=== PATIENT | female | born 1975 | race American Indian/Alaskan Native ===

== ENCOUNTER 2017-12-31 15:43 | Emergency (ER) | payer MEDICAID ==
[~2017-12-31] VITALS: Ht 162.6 cm; Wt 103.1 kg
[~2017-12-31 15:43] MED LIST: DIPH-423 PO; HYDR-2561 PO; PERM60CR4 TP
[2017-12-31 16:16] VITALS: BP 156/85
[2017-12-31] MEDS ORDERED: dexamethasone sod phosphate 10mg/ml inj PO STA (16:39)
[2017-12-31] MEDS ORDERED: AMOX-422 PO (16:39)
== END 2017-12-31 17:08 | disposition home or self-care (01) ==
LOC: ER 15:44
DX: J32.9 Chronic sinusitis, unspecified (principal); Z88.6 Allergy status to analgesic agent; Z88.8 Allergy status to other drugs, medicaments and biological substances; Z56.0 Unemployment, unspecified
CPT/HCPCS: 99283; J1100

== ENCOUNTER 2018-02-08 14:30 | Emergency (ER) | payer MEDICAID ==
[~2018-02-08] VITALS: Ht 5367.7 cm; Wt 53.1 kg
[~2018-02-08 14:30] MED LIST changes: +METH4TAB3 PO
[2018-02-08 15:00] VITALS: BP 126/74
[2018-02-08] MEDS ORDERED: AMOX-580 PO (16:18)
== END 2018-02-08 16:29 | disposition home or self-care (01) ==
LOC: ER 14:31
DX: R60.0 Localized edema (principal); R14.0 Abdominal distension (gaseous); R10.11 Right upper quadrant pain; Z56.0 Unemployment, unspecified; Z88.8 Allergy status to other drugs, medicaments and biological substances; Z88.6 Allergy status to analgesic agent; Z79.899 Other long term (current) drug therapy
CPT/HCPCS: 99283

== ENCOUNTER 2019-08-18 00:05 | Emergency (ER) | payer MEDICAID ==
[~2019-08-18] VITALS: Ht 162.6 cm; Wt 92.2 kg
[2019-08-18 00:27] VITALS: BP 127/84
[2019-08-18 01:06] LABS: URINE HCG NEGATIVE (NEG)
[2019-08-18 01:18] LABS: CLARITY,URINE CLEAR (Clear); COLOR,URINE YELLOW (Yellow); GLUCOSE, URINE NEGATIVE (Neg); KETONES,URINE NEGATIVE (Neg); LEUKOCYTE ESTERASE ,URINE NEGATIVE (Neg); NITRITES, URINE NEGATIVE (Neg); OCCULT BLOOD,URINE NEGATIVE (Neg); PROTEIN,URINE NEGATIVE (Neg); UA COLLECTION TYPE VOIDED; UROBILINOGEN,URINE 0.2 E.U/dL (0.2-1.0)
== END 2019-08-18 02:03 | disposition home or self-care (01) ==
LOC: ER 00:06
DX: R30.0 Dysuria (principal); M54.5 Low back pain; Z56.0 Unemployment, unspecified; Z88.6 Allergy status to analgesic agent; Z88.8 Allergy status to other drugs, medicaments and biological substances
CPT/HCPCS: 81003; 81025; 99283

== ENCOUNTER 2020-08-29 20:03 | Emergency (ER) | payer MEDICAID ==
[~2020-08-29] VITALS: Ht 162.6 cm; Wt 74.0 kg
[2020-08-29] MEDS ORDERED: LORazepam 0.5 MG tablet PO PRN (21:20)
[2020-08-29 21:48] VITALS: BP 95/50
== END 2020-08-29 21:49 | disposition home or self-care (01) ==
LOC: ER 20:03
DX: F41.0 Panic disorder [episodic paroxysmal anxiety] (principal); Z56.0 Unemployment, unspecified; Z88.8 Allergy status to other drugs, medicaments and biological substances; Z79.899 Other long term (current) drug therapy
CPT/HCPCS: 93005; 99283

== ENCOUNTER 2020-12-24 10:00 | Emergency (ER) | payer MEDICAID ==
[~2020-12-24] VITALS: Ht 162.6 cm; Wt 77.3 kg
[2020-12-24] MEDS ORDERED: normal saline 1000ML IV soln IVB ONE (10:35)
[2020-12-24] MEDS ORDERED: proCHLORperazine 10 MG/2 ml inj IV ONE (10:35)
[2020-12-24] MEDS ORDERED: diphenhydrAMINE 50 mg/ml inj IV ONE (10:35)
[2020-12-24 10:58] LABS: HEMOGLOBIN 15.7 g/dl (12.0-16.0); MEAN PLATELET VOLUME 10.8 FL (7.4-10.4); NEUTROPHILS # (AUTO) 2.8 X10'3 (1.8-7.7)
[2020-12-24 10:59] LABS: BASOPHILS % (AUTO) 0.4 % (0-1); EOSINOPHILS # (AUTO) 0.1 X10'3 (0-0.9); EOSINOPHILS % (AUTO) 3.5 % (0-6); HEMATOCRIT 46.6 % (35.0-45.0); LYMPHOCYTES % (AUTO) 23.8 % (21-51); MEAN CORPUSCULAR HEMOGLOBIN 29.6 PG (27.0-31.0); MEAN CORPUSCULAR HGB CONC 33.7 g/dL (33.0-36.5); MEAN CORPUSCULAR VOLUME 87.9 FL (78-98); MONOCYTES # (AUTO) 0.2 X10'3 (0-0.9); MONOCYTES % (AUTO) 5.8 % (2-12); NEUTROPHILS % (AUTO) 66.5 % (42-75); PLATELET COUNT 67 X10'3 (140-440); RED CELL DISTRIBUTION WIDTH 14.4 % (11.5-14.5); WHITE BLOOD COUNT 4.2 X10'3 (4.5-11.0)
[2020-12-24] MEDS ORDERED: hyDROXYzine 50 mg/ml injection ***IM only IM ONE (11:05)
[2020-12-24 11:10] LABS: ALANINE AMINOTRANSFERASE 25 U/L (12-78); ALBUMIN 3.8 G/DL (3.4-5.0); ALBUMIN/GLOBULIN RATIO 1.1 (1.1-1.5); ALKALINE PHOSPHATASE 86 IU/L (46-116); ANION GAP 6 (8-16); ASPARTATE AMINO TRANSFERASE 30 U/L (10-37); BILIRUBIN,TOTAL 0.7 MG/DL (0.1-1.0); BLOOD UREA NITROGEN 12 MG/DL (7-18); BUN/CREATININE RATIO 15.6 (6.6-38.0); CALCIUM 10.6 MG/DL (8.5-10.1); CHLORIDE 104 MMOL/L (99-107); CREATININE 0.77 MG/DL (0.40-0.90); GLUCOSE 88 MG/DL (70-104); POTASSIUM 3.9 MMOL/L (3.5-5.1); SODIUM 141 MMOL/L (135-145); TOTAL CARBON DIOXIDE 30.6 MMOL/L (24-32); TOTAL PROTEIN 7.4 G/DL (6.4-8.2); eGFR 81 ML/MIN
[2020-12-24 11:17] LABS: LARGE PLATELETS FEW; PLATELET ESTIMATE DECREASED
[2020-12-24 12:37] LABS: CLARITY,URINE CLEAR (Clear); COLOR,URINE STRAW (Yellow); GLUCOSE, URINE NEGATIVE (Neg); KETONES,URINE NEGATIVE (Neg); LEUKOCYTE ESTERASE ,URINE LARGE (Neg); NITRITES, URINE NEGATIVE (Neg); OCCULT BLOOD,URINE NEGATIVE (Neg); PROTEIN,URINE NEGATIVE (Neg); URINE HCG NEGATIVE (NEG); UROBILINOGEN,URINE 0.2 E.U/dL (0.2-1.0)
[2020-12-24 12:42] LABS: UA COLLECTION TYPE CLN CATCH MIDSTREAM
[2020-12-24 12:48] LABS: BACTERIA,URINE 1+ /HPF (Neg); MUCUS STRANDS NONE SEEN /LPF (Neg); RBC,URINE NONE SEEN /HPF (0-2); RENAL CELLS, URINE FEW /HPF; SQUAMOUS EPITHELIAL CELL,UR MODERATE /LPF (FEW); WBC CLUMPS,URINE MODERATE /HPF (NEGATIVE); WBC,URINE 50-100 /HPF (0-4)
--- NOTE | 2020-12-24 14:28 | NUR ---
AWAITING FOR DC PAPER.
[2020-12-24] MEDS ORDERED: NITR100C6 PO (14:39)
[2020-12-24 14:47] VITALS: BP 101/48
== END 2020-12-24 14:50 | disposition home or self-care (01) ==
LOC: ER 10:00
DX: N39.0 Urinary tract infection, site not specified (principal); R06.02 Shortness of breath; R42 Dizziness and giddiness; R11.0 Nausea; R51.9 Headache, unspecified; Z86.2 Personal history of diseases of the blood and blood-forming organs and certain disorders involving the immune mechanism; Z90.49 Acquired absence of other specified parts of digestive tract; Z56.0 Unemployment, unspecified; Z88.6 Allergy status to analgesic agent; Z88.8 Allergy status to other drugs, medicaments and biological substances; Z79.899 Other long term (current) drug therapy
CPT/HCPCS: 36415; 80053; 81001; 81025; 85008; 85025; 96361; 96374; 96375; 99285; J0780; J1200; J7030